=== PATIENT | male | born 1980 | race Caucasian/White ===

== ENCOUNTER 2019-03-03 13:42 | Day surgery (SDC) | payer OTHER ==
[2019-03-02 11:33] VITALS: BMI 29.0
--- NOTE | 2019-03-03 07:35 | OP ---
Operative Note - Note: Operative Date: 03/03/19 Pre-Operative Diagnosis: Left ankle fracture Operation: Left ankle ORIF Post-Operative Diagnosis: Same as Pre-op Surgeon: Gómez Gifford Bowling Alley Manager: Lyssa Mccormick Anesthesia: General Operative Report Dictated: Yes
[2019-03-03] MEDS ORDERED: oxyCODONE HCL 5 MG TABLET PO PRN ×2 (15:49)
[2019-03-03] MEDS ORDERED: ONDANSETRON 4 MG/2 ML VIAL IVPUSH PRN (15:49)
[2019-03-03] MEDS ORDERED: MIDAZOLAM HCL 2 MG/2 ML SINGLE DOSE VIAL ONE (16:06)
[2019-03-03] MEDS ORDERED: BUPIVACAINE LIPOSOME/PF (EXPAREL) 266 MG/20 ML VIAL ONE (16:06)
[2019-03-03] MEDS ORDERED: BUPIVACAINE HCL/PF (5 MG/ML) 30 ML VIAL IJ ONE (16:06)
[2019-03-03] MEDS ORDERED: PROPOFOL 20 ML ONE ×2 (17:09→17:10)
[2019-03-03] MEDS ORDERED: TRANEXAMIC ACID 1000 MG/10 ML VIAL ONE (17:29)
[2019-03-03] MEDS ORDERED: oxyCODONE HCL 5 MG TABLET ONE (19:14)
[2019-03-03 20:36] VITALS: BP 148/82; PULSE 91; TEMP 98.5
--- NOTE | 2019-03-03 23:55 | OP ---
DATE OF OPERATION: 03/03/2019 PREOPERATIVE DIAGNOSIS: Left ankle fracture dislocation. POSTOPERATIVE DIAGNOSIS: Left ankle fracture dislocation. PROCEDURE: Left ankle open reduction, internal fixation. SURGEON: Gómez Rankin M.D. [employer] PRINCIPAL: Eliecer Paniagua, whose skillful assistance was necessary for the safe and timely performance of this procedure. Ms. Mccormick was able to provide limb positioning, retraction, fracture reduction, as well as insertion of orthopedic hardware. ANESTHESIA: General plus region. POSTOPERATIVE CONDITION: Stable. COMPLICATIONS: None. IMPLANTS: Arthrex distal fibula plate, titanium 3.5-mm shaft and 2.7-mm distal locking screws. There was also a 3-0 lag screw. INDICATION: This is a pleasant 39-year-old gentleman who initially had a fracture dislocation that was reduced hospital. He had persistent displacement of the lateral malleolus as well as the mortice, and therefore was indicated for operative management. He has the option of nonoperative care with malunion and potential ankle joint arthrosis. We reviewed surgical risks in detail including bleeding, infection neurovascular injury, need for further surgery, postoperative pain and stiffness, nonunion, malunion, hardware failure, and cutout. We discussed medical risks such as heart attack, stroke, DVT, PE and . I addressed use of perioperative antibiotic and DVT prophylaxis. I reviewed the postoperative rehabilitation protocol and weightbearing restrictions. I addressed all the patient's questions and concerns. He voices understanding, and elected to proceed. DESCRIPTION OF PROCEDURE: The patient was brought to the operating room. After administration of regional anesthesia in the preoperative holding area. The left lower extremity was prepped and draped in the usual sterile fashion. A perioperative dose of antibiotics was given, and the usual timeout procedure performed. At this point, an incision was planned out over the distal fibula. The limb was then exsanguinated and tourniquet was inflated to 250 mmHg. Incision was now carried out skin to subcutaneous tissue. Blunt spreading was used to expose the fracture site, which had generous hematoma. The hematoma was evacuated. Periosteal elevator as well as sharp dissection was used to elevate the periosteum out of the region of the fracture site. A curet was used to debride the fracture site. It was irrigated. The fracture reduction forceps was now applied, and the fracture responded to anatomic reduction. Fluoroscopy was used to confirm reduction. A 3-0 lag screw was now drilled in standard fashion from anterior to posterior, measured and inserted. At this point, the fracture reduction forceps was removed, and the fracture was stable. Fluoroscopy was used to confirm fracture reduction and hardware placement. Both were satisfactory. The plate was now chosen and plate length was confirmed fluoroscopically as well as visually. The plate was now fixed down to the bone proximally using three 3.5-mm cortical screws. Excellent purchase was achieved. Distally, the locking holes were drilled with self utilizing unicortical 3-0 locking screws. The entire construct was now examined both visually and fluoroscopically. Both fracture reduction and hardware placement were satisfactory. A live fluoroscopy external fixation stress test was performed demonstrating no widening of the medial clear space. The wound was copiously irrigated at this point. The deep tissue was approximated using 2-0 Vicryl. The subcutaneous tissue was approximated using 3-0 Vicryl. The skin was closed using 3-0 nylon and 4-0 nylon. Sterile dressings were placed. The patient was placed in a well padded short leg cast. He was extubated and transferred to recovery room in stable condition. GÓMEZ RANKIN M.D. [id number]
== END 2019-03-03 20:37 | disposition home or self-care (01) ==
LOC: FASU 13:42
PROVIDERS: ATTEND Orthopaedic Surgery Sports Medicine
PROC: 0QSK04Z Reposition Left Fibula with Internal Fixation Device, Open Approach (ICD-10-PCS; principal; 2019-03-03 17:24)
DX: S82.62XA Displaced fracture of lateral malleolus of left fibula, initial encounter for closed fracture (principal); X58.XXXA Exposure to other specified factors, initial encounter; Y93.9 Activity, unspecified; Y92.9 Unspecified place or not applicable
CPT/HCPCS: 73610-TC-LT-FY; 94760